=== PATIENT | female | born 1985 | race Two or more races ===

== ENCOUNTER 2021-02-21 12:44 | Emergency (ER) | payer OTHER ==
[2021-02-21 12:52] VITALS: BP 150/54; PULSE 93; RESP 16; TEMP 98
[2021-02-21] MEDS ORDERED: LORazepam 1 MG TAB PO STA (13:20)
--- NOTE | 2021-02-21 13:39 | ED ---
General Adult HPI - General Chief complaint: Anxiety Stated complaint: anxiety Time Seen by Provider: 02/21/21 12:50 Source: patient, RN notes reviewed, old records reviewed Mode of arrival: ambulatory Limitations: no limitations - History of Present Illness Initial comments: This is a 35-year-old female presents emergency department complaining having anxiety. Patient states she's been under a lot of stress and lately her anxiety is getting worse and worse. Patient states her Zoloft just increased to 50 mg yesterday by her primary medical care doctor but today she got up and was so anxious she felt like she couldn't drive in the rain storm. Patient states she waited to let up so she could drive to the hospital. Patient has no physical complaints. Patient denies suicidal or homicidal. Patient denies any drug use patient denies any alcohol use. Patient states she just needs something for her nerves today she's had a follow-up with her primary medical care doctor. - Related Data Home Medications Medication Instructions Recorded Confirmed Ammonium Lactate Lotion 1 applic TOPICAL DAILY PRN 02/21/21 02/21/21 [Lac-Hydrin 12% Lotion] Cholecalciferol [Vitamin D3 (25 25 mcg PO DAILY 02/21/21 02/21/21 Mcg = 1000 Iu)] Clotrimazole Cream [Lotrimin Cream] 1 applic TOPICAL DAILY PRN 02/21/21 02/21/21 Sertraline [Zoloft] 25 mg PO DAILY 02/21/21 02/21/21 Allergies Allergy/AdvReac Type Severity Reaction Status Date / Time amoxicillin [From Amoxil] Allergy Unknown Verified 02/21/21 13:33 Review of Systems ROS Statement: Those systems with pertinent positive or pertinent negative responses have been documented in the HPI. ROS Other: All systems not noted in ROS Statement are negative. Past Medical History Past Medical History: No Reported History History of Any Multi-Drug Resistant Organisms: MRSA Date of last positivie culture/infection: 2009 MDRO Source:: back, ear Past Surgical History: Appendectomy, Section Past Psychological History: No Psychological Hx Reported Smoking Status: Current every day smoker Past Alcohol Use History: Occasional Past Drug Use History: Marijuana General Exam - General Exam Comments Initial Comments: GENERAL: Patient is well-developed and well-nourished. Patient is nontoxic and well- hydrated and is in no acute distress. ENT: Neck is soft and supple. No significant lymphadenopathy is noted. Oropharynx is clear. Moist mucous membranes. Neck has full range of motion without eliciting any pain. EYES: The sclera were anicteric and conjunctiva were pink and moist. Extraocular movements were intact and pupils were equal round and reactive to light. Eyelids were unremarkable. PULMONARY: Unlabored respirations. Good breath sounds bilaterally. No audible rales rhonchi or wheezing was noted. CARDIOVASCULAR: There is a regular rate and rhythm without any murmurs gallops or rubs. ABDOMEN: Soft and nontender with normal bowel sounds. SKIN: Skin is clear with no lesions or rashes and otherwise unremarkable. NEUROLOGIC: Patient is alert and oriented x3. Cranial nerves II through XII are grossly intact. Motor and sensory are also intact. Normal speech, volume and content. Symmetrical smile. MUSCULOSKELETAL: Normal extremities with adequate strength and full range of motion. No lower extremity swelling or edema. No calf tenderness. LYMPHATICS: No significant lymphadenopathy is noted PSYCHIATRIC: Patient is anxious she denies suicidal or homicidal ideations Limitations: no limitations Course Vital Signs 02/21/21 12:48 Temperature 98 F Pulse Rate 93 Respiratory 16 Rate Blood Pressure 150/54 O2 Sat by Pulse 100 Oximetry Medical Decision Making - Medical Decision Making Patient received 1 mg Ativan. Disposition Clinical Impression: Acute anxiety Disposition: HOME SELF-CARE Instructions (If sedation given, give patient instructions): Generalized Anxiety Disorder (ED) Is patient prescribed a controlled substance at d/c from ED?: No Referrals: Yandy [place] NPC [Primary Care Provider] - 1-2 days Time of Disposition: 13:38
== END 2021-02-21 13:54 | disposition home or self-care (01) ==
LOC: EC 12:44
DX: F41.9 Anxiety disorder, unspecified (principal); F17.200 Nicotine dependence, unspecified, uncomplicated; F12.90 Cannabis use, unspecified, uncomplicated; Z88.0 Allergy status to penicillin; Z90.49 Acquired absence of other specified parts of digestive tract
CPT/HCPCS: 99283

== ENCOUNTER 2021-09-10 15:44 | Emergency (ER) | payer OTHER ==
[2021-09-10] MEDS ORDERED: ACETAMINOPHEN TAB 500 MG TAB PO STA (17:09)
--- NOTE | 2021-09-10 17:36 | ED ---
General Adult HPI - General Chief complaint: Upper Respiratory Infection Stated complaint: Cough, Vomiting, Fever Time Seen by Provider: 09/10/21 16:43 Source: patient Mode of arrival: ambulatory Limitations: no limitations - History of Present Illness Initial comments: This 36-year-old female presents emergency Department with fever and cough that began at 4 AM yesterday. Patient states she has been taking Motrin 800 and states her fever went as high as 101.1 yesterday. Patient states she does have a little bit of a headache that seems to come and go. Patient states her headache is rated 3/10. Patient states she did vomit one time yesterday evening after taking NyQuil on an empty stomach. She denies any vomiting or nausea since this time. Patient denies any hemoptysis. She states she has been coughing up a little bit of clear drainage yesterday. Patient states she does have a little bit lower right back pain as she states she was stretching a couple days ago, she states she has had sciatica in her right leg in her past and states Flexeril he sit feel better and states this feels the exact same as when she had sciatica. Patient denies any pain with taking a deep breath. Patient denies any chest pain, shortness of breath, abdominal pain, change in bowel or bladder, change in appetite, change in vision, lightheadedness, dizzi ness, sore throat, nasal congestion. Patient denies any neck pain. Patient denies any saddle anesthesia or bowel or bladder retention/incontinence. Patient states she has been experiencing some mild body aches which are relieved with Motrin. - Related Data Home Medications Medication Instructions Recorded Confirmed Dm/Acetaminophen/Doxylamine [Vicks 30 ml PO Q8H PRN 09/10/21 09/10/21 Nyquil Cold-Flu Liquid] Ibuprofen [Motrin Ib] 800 mg PO Q8H PRN 09/10/21 09/10/21 Allergies Allergy/AdvReac Type Severity Reaction Status Date / Time amoxicillin [From Amoxil] Allergy Unknown Verified 09/10/21 17:49 Review of Systems ROS Statement: Those systems with pertinent positive or pertinent negative responses have been documented in the HPI. ROS Other: All systems not noted in ROS Statement are negative. Past Medical History Past Medical History: No Reported History History of Any Multi-Drug Resistant Organisms: MRSA Date of last positivie culture/infection: 2009 MDRO Source:: back, ear Past Surgical History: Appendectomy, Section Past Psychological History: No Psychological Hx Reported Smoking Status: Current every day smoker Past Alcohol Use History: Occasional Past Drug Use History: Marijuana General Exam Limitations: no limitations General appearance: alert, in no apparent distress Head exam: Present: atraumatic, normocephalic, normal inspection Eye exam: Present: normal appearance, PERRL, EOMI. Absent: scleral icterus, conjunctival injection, periorbital swelling ENT exam: Present: normal exam, mucous membranes moist Neck exam: Present: normal inspection, full ROM. Absent: tenderness, meningismus, lymphadenopathy Respiratory exam: Present: normal lung sounds bilaterally. Absent: respiratory distress, wheezes, rales, rhonchi, stridor Cardiovascular Exam: Present: regular rate, normal rhythm, normal heart sounds. Absent: systolic murmur, diastolic murmur, rubs, gallop, clicks GI/Abdominal exam: Present: soft, normal bowel sounds. Absent: distended, tenderness, guarding, rebound, rigid Extremities exam: Present: normal inspection, full ROM, normal capillary refill. Absent: tenderness, pedal edema, joint swelling, calf tenderness Back exam: Present: normal inspection, full ROM, paraspinal tenderness (Patient with mild lower right lumbar paraspinal tenderness to deep palpation). Absent: CVA tenderness (R), CVA tenderness (L), vertebral tenderness Neurological exam: Present: alert, oriented X3, CN II-XII intact, normal gait Psychiatric exam: Present: normal affect, normal mood Skin exam: Present: warm, dry, intact, normal color. Absent: rash Course Vital Signs 09/10/21 16:00 Temperature 98 F Pulse Rate 11 L Respiratory 16 Rate Blood Pressure 117/83 O2 Sat by Pulse 100 Oximetry Medical Decision Making - Medical Decision Making This 36-year-old female presents to the emergency department with cough and fever 2 days. Influenza A positive. Chest x-ray without any acute a bnormalities. One dose of Flexeril didn't patient on the emergency department as she states she pulled a muscle in her right lower back while stretching the other day. Patient instructed to take Tylenol and Motrin as directed for symptom relief. Patient instructed to follow up with primary care provider in next 1-2 days. Strict return precautions were discussed. Patient verbally agreed to plan. Case discussed in detail my attending, Dr. Gutiérrez. - Lab Data Lab Results 09/10/21 09/10/21 09/10/21 Range/Units 17:20 17:20 17:20 Urine HCG, Qual Not Detected (Not Detectd) Coronavirus (PCR) Not Detected (Not Detectd) Influenza Type A RNA Detected H (Not Detectd) Influenza Type B (PCR) Not Detected (Not Detectd) Disposition Clinical Impression: Influenza A Disposition: HOME SELF-CARE Condition: Stable Instructions (If sedation given, give patient instructions): Influenza (ED) Additional Instructions: Please take Tylenol and Motrin as directed for symptom relief. Follow-up with your primary care provider in next 1-2 days. Return to the emergency department with any new, worsening or concerning symptoms. Is patient prescribed a controlled substance at d/c from ED?: No Referrals: Yandy [place] NPC [Primary Care Provider] - 1-2 days Time of Disposition: 17:57
[2021-09-10] MEDS ORDERED: CYCLOBENZAPRINE 5 MG TAB PO STA (17:55)
--- NOTE | 2021-09-10 18:20 | XR ---
EXAMINATION TYPE: XR chest 2V DATE OF EXAM: 09/10/2021 COMPARISON: NONE HISTORY: Cough and fever TECHNIQUE: 2 views FINDINGS: Heart and mediastinum are normal. Lungs are clear. Diaphragm is normal. Bony thorax appears normal. IMPRESSION: Normal chest
[2021-09-10 18:49] VITALS: BP 111/74; PULSE 84; RESP 18; TEMP 99
== END 2021-09-10 18:54 | disposition home or self-care (01) ==
LOC: EC 15:44
DX: J10.1 Influenza due to other identified influenza virus with other respiratory manifestations (principal); F17.200 Nicotine dependence, unspecified, uncomplicated; Z20.822 Contact with and (suspected) exposure to COVID-19; Z88.0 Allergy status to penicillin
CPT/HCPCS: 71046; 81025; 87502; 87635; 99284

== ENCOUNTER 2022-03-12 18:07 | Inpatient (IN) | payer MEDICAID, OTHER ==
--- NOTE | 2022-03-12 19:41 | ED ---
General Adult HPI - General Source: patient, RN notes reviewed, old records reviewed Mode of arrival: ambulatory Limitations: no limitations <Lc Shipley - Last Filed: 03/12/22 21:17> <Lc Gillespie - Last Filed: 03/12/22 23:10> - General Chief complaint: Psychiatric Symptoms Stated complaint: mental health Time Seen by Provider: 03/12/22 18:20 - History of Present Illness Initial comments: This is a 36-year-old female presents emergency Department stating for the last 2 weeks been very depressed and having suicidal ideations. Patient states lately some of her thought processes gotten a little more serious and she is afraid it'll progress and she may follow through. Patient states she has no exact plan. Patient states she lost her psychiatrist recently and so she has no one to follow-up with. Patient denies any taking any pills patient states she does smoke marijuana but no other illegal drugs. Patient denies any drinking today. Patient denies any physical complaints today. Patient states she has some recent weight gain but she is depressed since she's not doing anything and possibly getting more. Patient denies any chance of being . (Lc Shipley) - Related Data Home Medications Medication Instructions Recorded Confirmed No Known Home Medications 03/12/22 03/12/22 Allergies Allergy/AdvReac Type Severity Reaction Status Date / Time amoxicillin [From Amoxil] Allergy Unknown Verified 03/12/22 21:24 Review of Systems ROS Other: All systems not noted in ROS Statement are negative. <Lc Shipley - Last Filed: 03/12/22 21:17> ROS Other: All systems not noted in ROS Statement are negative. <Lc Gillespie - Last Filed: 03/12/22 23:10> ROS Statement: Those systems with pertinent positive or pertinent negative responses have been documented in the HPI. Past Medical History Past Medical History: No Reported History History of Any Multi-Drug Resistant Organisms: MRSA Date of last positivie culture/infection: 2009 MDRO Source:: back, ear Past Surgical History: Appendectomy, Section Past Psychological History: Anxiety, Depression Smoking Status: Current every day smoker Past Alcohol Use History: Occasional Past Drug Use History: Marijuana <Lc Shipley - Last Filed: 03/12/22 21:17> General Exam Limitations: no limitations <Lc Shipley - Last Filed: 03/12/22 21:17> - General Exam Comments Initial Comments: GENERAL: Patient is well-developed and well-nourished. Patient is nontoxic and well- hydrated and is in no acute distress. ENT: Neck is soft and supple. No significant lymphadenopathy is noted. Oropharynx is clear. Moist mucous membranes. Neck has full range of motion without eliciting any pain. EYES: The sclera were anicteric and conjunctiva were pink and moist. Extraocular movements were intact and pupils were equal round and reactive to light. Eyelids were unremarkable. PULMONARY: Unlabored respirations. Good breath sounds bilaterally. No audible rales rhonchi or wheezing was noted. CARDIOVASCULAR: There is a regular rate and rhythm without any murmurs gallops or rubs. SKIN: Skin is clear with no lesions or rashes and otherwise unremarkable. NEUROLOGIC: Patient is alert and oriented x3. Cranial nerves II through XII are grossly intact. Motor and sensory are also intact. Normal speech, volume and content. Symmetrical smile. MUSCULOSKELETAL: Normal extremities with adequate strength and full range of motion. PSYCHIATRIC: Patient states she's been more depressed lately and has been content putting suicide and those thoughts becoming more prevalent stronger. (Lc Shipley) Course <Lc Gillespie - Last Filed: 03/12/22 23:10> Vital Signs 03/12/22 03/12/22 18:16 20:23 Temperature 98.4 F Pulse Rate 100 79 Respiratory 20 16 Rate Blood Pressure 160/100 137/87 O2 Sat by Pulse 98 97 Oximetry - Reevaluation(s) Reevaluation #1: 03/12/22 23:10 Medical record is reviewed (Lc Gillespie) Reevaluation #2: 03/12/22 23:10 Patient was made medically clear for psychiatry (Lc Gillespie) Medical Decision Making <Lc Gillespie - Last Filed: 03/12/22 23:10> - Medical Decision Making 36 female was seen and evaluated psychiatry here in the ER, patient be admitted for psychiatric evaluation and treatment (Lc Gillespie) Disposition Time of Disposition: 21:18 <Lc Shipley - Last Filed: 03/12/22 21:17> Is patient prescribed a controlled substance at d/c from ED?: No <Lc Gillespie - Last Filed: 03/12/22 23:10> Clinical Impression: Depression, Suicidal ideation, Drug-induced psychotic disorder, Acute psychosis Disposition: TRANSFER TO PSYCH HOSP/UNIT Condition: Fair Referrals: Foreign Saez MD [STAFF PHYSICIAN] - 1-2 days
[2022-03-13] MEDS ORDERED: ACETAMINOPHEN TAB 325 MG TAB PO PRN (00:29)
[2022-03-13] MEDS ORDERED: MAGNESIUM HYDROXIDE 2,400 MG/10 ML CUP PO PRN (00:29)
[2022-03-13] MEDS ORDERED: HALOPERIDOL LACTATE 5 MG/ML 1 ML VIAL IM PRN (00:29)
[2022-03-13] MEDS ORDERED: LORazepam 2 MG/ML INJ IM PRN (00:32)
[2022-03-13] MEDS ORDERED: haloperidoL 5 MG TAB PO PRN (00:32)
[2022-03-13 00:58] LABS: Cocaine Screen,Urine Not Detected (NotDetected); Opiate Screen,Urine Not Detected (NotDetected); Phencyclidine Screen,Urine Not Detected (NotDetected); Urn Cannabinoid Scrn Detected (NotDetected)
[2022-03-13 00:59] LABS: Amphetamine Screen,Urine Not Detected (NotDetected); Barbiturate Screen,Urine Not Detected (NotDetected); Benzodiazepines Screen,Urine Not Detected (NotDetected); Methadone Screen, Urine Not Detected (NotDetected); Oxycodone Screen, Urine Not Detected (NotDetected); Tricyclic Antidepressant,Urine Not Detected (NotDetected)
[2022-03-13 01:40] LABS: Appearance,Urine Clear (Clear); Bilirubin,Urine Negative (Negative); Blood,Urine Negative (Negative); Color,Urine Yellow; Glucose,Urine (UA) Negative (Negative); Ketones,Urine 1+ (Negative); Leukocyte Esterase,Urine Negative (Negative); Nitrite,Urine Negative (Negative); Protein,Urine Trace (Negative); Urobilinogen,Urine <2.0 mg/dL (<2.0)
[2022-03-13] MEDS: LORazepam 1 MG TAB PO PRN (01:43)
[2022-03-13] MEDS: NICOTINE 14MG/24HR PATCH TRANSDERM SCH ×3 (01:43→09:29)
--- NOTE | 2022-03-13 03:38 | P.CONS ---
History of Present Illness - Reason for Consult Consult date: 03/13/22 - History of Present Illness The patient is a 36-year-old female with a PMH of marijuana abuse who presents to the emergency room with complaints of depression and suicidal ideation. The patient was admitted to the mental health unit where she was seen and evaluated. The patient reports that she has been undergoing a lot of social stressors recently including the of several of her loved ones over the past few years. She reports suicidal ideation but reported no specific plan as to how she was going to harm herself. She reported recreational marijuana use and smoking one pack of cigarettes daily but denied any additional substances. Also denied physical complaints at the time of interview. She denied experiencing chest discomfort, shortness of breath, fever, chills, cough, nausea, vomiting, abdominal pain, diarrhea. Review of systems: Pertinent positives and negatives as discussed in HPI, a complete review of systems was performed and all other systems are negative. Physical examination: General: non toxic, no distress, appears at stated age, obese Derm: no unusual rashes/lesions, no unusual ecchymoses, warm, dry Head: atraumatic, normocephalic, symmetric Eyes: EOMI, no lid lag, anicteric sclera ENT: Nose and ears atraumatic, no thrush, no pharyngeal erythema Neck: trachea midline, supple Mouth: no lip lesion, mucus membranes moist Cardiovascular: S1S2 reg, no murmur, no edema Lungs: CTA bilateral, no rhonchi, no rales , no accessory muscle use Abdominal: soft, nontender to palpation, no guarding Ext: no gross muscle atrophy, no contractures, Neuro: No gross focal neuro deficits noted Psych: Alert, oriented, appropriate affect Assessment/plan Marijuana abuse -Advised on importance of cessation [place] Depression and suicidal ideation -As per psychiatry Thank you for allowing us to participate in the care of this patient. We will follow peripherally. Do not hesitate to contact us with questions. Someone can be reached from the [facility] hospitalist group at all hours of the day at [phone]. Past Medical History Past Medical History: No Reported History History of Any Multi-Drug Resistant Organisms: MRSA Year Discovered:: 2009 MDRO Source:: back, ear Past Surgical History: Appendectomy, Section Past Psychological History: Anxiety, Depression Smoking Status: Current every day smoker Past Alcohol Use History: Occasional Past Drug Use History: Marijuana - Past Family History Father Family Medical History: Cancer Medications and Allergies Home Medications Medication Instructions Recorded Confirmed Type No Known Home Medications 03/12/22 03/13/22 History Allergies Allergy/AdvReac Type Severity Reaction Status Date / Time amoxicillin [From Amoxil] Allergy Unknown Verified 03/13/22 01:02 Physical Exam Vitals: Vital Signs Temp Pulse Pulse Resp BP BP Pulse Ox 03/13/22 01:18 97.6 F 67 16 141/66 97 03/12/22 20:23 79 16 137/87 97 03/12/22 18:16 98.4 F 100 20 160/100 98 Intake and Output 03/12/22 03/12/22 03/13/22 14:59 22:59 06:59 Other: Weight 68.039 kg 68.634 kg Results Labs: Abnormal Lab Results - Last 24 Hours (Table) 03/12/22 03/12/22 Range/Units 23:15 Unknown Urine Protein Trace H (Negative) Urine Ketones 1+ H (Negative) U Marijuana (THC) Screen Detected H (NotDetected)
[2022-03-13] MEDS ORDERED: LORazepam 1 MG/0.5 ML VIAL IM PRN (08:02)
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
[2022-03-13] MEDS: LITHIUM CARBONATE 150 MG CAP PO SCH ×2 (13:09→20:33)
[2022-03-13] MEDS: SERTRALINE 50 MG TAB PO SCH (13:09)
[2022-03-13] MEDS: MAG HYDROX/AL HYDROX/SIMETH 30 ML CUP PO PRN (14:30)
[2022-03-14] MEDS: LORazepam 1 MG TAB PO PRN (00:08)
[2022-03-14] MEDS: SERTRALINE 50 MG TAB PO SCH (08:27)
[2022-03-14] MEDS: NICOTINE 14MG/24HR PATCH TRANSDERM SCH (08:27)
[2022-03-14] MEDS: LITHIUM CARBONATE 150 MG CAP PO SCH ×2 (08:27→20:49)
[2022-03-14] MEDS ORDERED: traZODone HCL 50 MG TAB PO PRN (10:16)
[2022-03-14] MEDS ORDERED: SENNOSIDES 8.6 MG TAB PO PRN (10:19)
--- NOTE | 2022-03-14 10:26 | P.PN ---
Progress Note - Text Progress Note Date: 03/14/22 Interval History: Patient was seen sitting in on group today and was directable and agreeable to speak with web content writer in the office. Patient claims that she had a difficult time sleeping last night and states that she usually takes melatonin. We spoke about using trazodone also as a prn for insomnia which she was okay with. She states that she is going to groups and feels better today in terms of her mood and also anxiety. She claims that she has not had a suicidal thought since she came into the hospital. She claims that she is getting along with other people on the unit. States that she her appetite has been improving.. At this time patient denies any suicidal or homical ideations, intent or plan. Patient denies any auditory, visual hallucinations and denies any paranoia or delusions. Patient denies any side effects from the medications and has been compliant with meds. Mental Status Exam: General Appearance: Patient appears to be short in stature, stated age is alert, directable, and attempts to cooperate. Patient appears to have well groomed hygiene and grooming. Behavior: Patient is seated without any agitated behavior. Her cooperative today Speech: Patient's speech is fluent and nonpressured. Mood/Affect: Patient reports their mood is improving mildly, affect is congruent Suicidality/Homicidality: Patient denies having any homicidal ideation intent or plan. Denies any suicidal ideations intent or plan Perceptions: Patient denies any visual hallucinations and denies any auditory hallucinations Though content/process: There is no evidence of any delusional thought content and thought process is linear and goal-directed. Rambles at times. Memory and concentration: AOX3, grossly intact for the purposes of this session Judgment and insight: Fair, improving IMPRESSIONS: Bipolar disorder, current episode depressed Anxiety disorder unspecified Cannabis use disorder Nicotine dependence Plan: -Patient continues to meet criteria for inpatient psychiatric admission for symptom stabilization and safety. Patient has signed adult voluntary form and medication consent and was placed in patient's chart. -Medications: Continue with Zoloft 50 mg daily for mood/anxiety, lithium 150 mg twice a day for mood stabilization/suicidal thoughts. I added melatonin 10 mg daily at bedtime for sleep. Trazodone 50 mg daily at bedtime when necessary for insomnia. -When necessary Ativan and Haldol for agitation/aggression. -NRT - nicotine patch -SW on board for discharge planning. Encouraged the patient to participate in milieu. likely discharge tomorrow if patient continues to improve.
[2022-03-14] MEDS ORDERED: MELATONIN 5 MG TABLET PO SCH (21:00)
[2022-03-15 07:23] LABS: ALT 21 U/L (4-34); AST 18 U/L (14-36); African American GFR (CKD) >90 (>60 ml/min/1.73 sqM); Albumin 5.2 g/dL (3.5-5.0); Alkaline Phosphatase 46 U/L (38-126); Anion Gap 13 mmol/L; Blood Urea Nitrogen 14 mg/dL (7-17); Calcium 9.9 mg/dL (8.4-10.2); Carbon Dioxide 24 mmol/L (22-30); Chloride 102 mmol/L (98-107); Glucose 92 mg/dL (74-99); Non-African American GFR(CKD) 88 (>60 ml/min/1.73 sqM); Potassium 4.6 mmol/L (3.5-5.1); Sodium 139 mmol/L (137-145); Total Bilirubin 1.1 mg/dL (0.2-1.3); Total Protein 8.2 g/dL (6.3-8.2)
[2022-03-15] MEDS: LITHIUM CARBONATE 150 MG CAP PO SCH (07:50)
[2022-03-15] MEDS: MAG HYDROX/AL HYDROX/SIMETH 30 ML CUP PO PRN (07:50)
[2022-03-15] MEDS: SERTRALINE 50 MG TAB PO SCH (07:50)
[2022-03-15] MEDS: NICOTINE 14MG/24HR PATCH TRANSDERM SCH (07:52)
[2022-03-15 07:55] LABS: Basophils # (A) 0.1 k/uL (0-0.2); Basophils % (A) 1 %; Eosinophils # (A) 0.2 k/uL (0-0.7); Eosinophils % (A) 2 %; HCT 43.8 % (34.0-46.0); HGB 14.8 gm/dL (11.4-16.0); Lymphocytes # (A) 2.4 k/uL (1.0-4.8); Lymphocytes % (A) 26 %; MCH 31.4 pg (25.0-35.0); MCHC 33.7 g/dL (31.0-37.0); Mean Platelet Volume 10.2; Monocytes # (A) 0.6 k/uL (0-1.0); Monocytes % (A) 7 %; Neutrophils # (A) 5.5 k/uL (1.3-7.7); Neutrophils % (A) 61 %; Platelet Count 302 k/uL (150-450); RBC 4.71 m/uL (3.80-5.40); RDW 12.7 % (11.5-15.5)
[2022-03-15 08:27] VITALS: BP 139/88; PULSE 72; RESP 20; TEMP 97.2
[2022-03-15] MEDS: LORazepam 1 MG TAB PO PRN (08:52)
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
== END 2022-03-15 12:15 | disposition home or self-care (01) | DRG 885 ==
LOC: EC 18:07 → 3MHU 03-13 00:26
PROVIDERS: ADMIT Psychiatry & Neurology Psychiatry; ATTEND Psychiatry & Neurology Psychiatry
DX: F31.30 Bipolar disorder, current episode depressed, mild or moderate severity, unspecified (principal); R45.851 Suicidal ideations; F41.9 Anxiety disorder, unspecified; F17.210 Nicotine dependence, cigarettes, uncomplicated; G47.00 Insomnia, unspecified; F12.159 Cannabis abuse with psychotic disorder, unspecified; Z63.4 Disappearance and death of family member; Z79.899 Other long term (current) drug therapy; Z60.2 Problems related to living alone; Z71.9 Counseling, unspecified; Z28.21 Immunization not carried out because of patient refusal; Z88.0 Allergy status to penicillin; Z86.14 Personal history of Methicillin resistant Staphylococcus aureus infection
CPT/HCPCS: 80053; 80306; 81003; 81025; 82075; 83036; 84443; 85025; 87635; 99285